=== PATIENT | female | born 1955 | race Caucasian/White ===

== ENCOUNTER → 2020-03-03 15:00 | Outpatient (CLI) | payer BC, SELFPAY ==
--- NOTE | ~2020-03-03 | MM_ITS ---
EXAMINATION: MM screening [facility] BI w nola HISTORY: Screening TECHNIQUE: Craniocaudal and mediolateral oblique 3-D tomosynthesis images were obtained and synthetic 2-D images were generated. CAD analysis was submitted and interpreted. COMPARISON: Comparison to multiple prior studies sequentially, with oldest reviewed study dated 08/11. BREAST PARENCHYMAL COMPOSITION: There are scattered areas of fibroglandular density. FINDINGS: There is no evidence of suspicious mass, calcification, or architectural distortion to sugg est malignancy in either breast. There has been no suspicious interval change. IMPRESSION: 1. No mammographic evidence of malignancy. 2. Recommend routine screening mammography in one year. BI-RADS Category 1: Negative Reviewed, dictated and finalized at location A.
== END ==
PROVIDERS: Visit Provider Obstetrics & Gynecology Gynecology
DX: Z12.31 Encounter for screening mammogram for malignant neoplasm of breast (principal)
CPT/HCPCS: 77063; 77067

== ENCOUNTER 2020-12-02 12:34 | Outpatient (CLI) | payer BC, SELFPAY ==
--- NOTE | 2020-12-02 12:54 | ECHO_ITS ---
Patient Info Name: Carissa Tobias Age: 65 years : 1955 Gender: Female Ht: 68 in Wt: 145 lbs BSA: 1.78 m2 HR: 75 bpm BP: 135 / 83 mmHg Technical Quality: Good Exam Date: 12/02/2020 1:04 PM Exam Location: [facility] Pulmonary Patient Status: Outpatient Admit Date: 12/02/2020 Staff Ordering Physician: Soto Dwyer DO Node Js Developer: Ann Nunez RDCS Attending Provider: Soto Dwyer DO Referring Physician: Reymundo ANDREWS; Exam Type: CA echo doppler color flow Study Info Indications R55 - Syncope and collapse Complete two-dimensional, color flow and Doppler transthoracic echocardiogram is performed. Summary 1. Complete two-dimensional, color flow and Doppler transthoracic echocardiogram is performed. 2. Left ventricular chamber dimension is normal. 3. Left ventricular systolic function is normal, estimated at 60-65%. 4. The left ventricular diastolic function is abnormal. 5. E/e' 10 is mildly elevated. 6. Left atrial chamber dimension is mildly enlarged. 7. Right atrial chamber dimension is mildly enlarged. 8. There is trace mitral valve regurgitation. 9. There is trace tricuspid valve regurgitation. 10. No pulmonary hypertension, estimated pulmonary arterial systolic pressure is 31 mmHg. Left Ventricle E/e' 10 is mildly elevated. Left ventricular chamber dimension is normal. Left ventricular systolic function is normal, estimated at 60-65%. The left ventricular diastolic function is abnormal. Right Ventricle Right ventricular chamber dimension is normal. Right ventricular systolic function is normal. Left Atria Left atrial chamber dimension is mildly enlarged. Right Atria Right atrial chamber dimension is mildly enlarged. Aortic Valve The aortic valve is trileaflet. There is no aortic valve stenosis. There is no aortic valve regurgitation. Pulmonic Valve There is no pulmonic regurgitation. Mitral Valve There is no mitral valve stenosis. There is trace mitral valve regurgitation. Tricuspid Valve There is trace tricuspid valve regurgitation. No pulmonary hypertension, estimated pulmonary arterial systolic pressure is 31 mmHg. Pericardium/Pleural There is no pericardial effusion. Inferior Vena Cava Normal inferior vena cava with >50% collapse upon inspiration consistent with normal right atrial pressure, 5 mmHg. Aorta The aortic root size at the sinus of Valsalva is normal. Left Ventricular Outflow Tract Name Value Normal LVOT 2D LVOT Diameter 1.9 cm LVOT Doppler LVOT Peak Gradient 5 mmHg LVOT Mean Gradient 3 mmHg LVOT VTI 22 cm LVOT VTI/AV VTI Ratio 0.9 LVOT Stroke Volume 60 ml LVOT CO 4.2 l/min LVOT CI 2.4 l/min/m2 Pulmonic Valve Name Value Normal
--- NOTE | 2020-12-08 12:31 | WPDHOLTEREM ---
Holter/Event Monitor Holter/Event Monitor Date of procedure: 12/02/20 Procedure Type: 48 hour holter monitor Indications: Syncope Conclusion: 1. 48 hour holter monitor on 12/02/20. 2. Underlying rhythm is sinus rhythm. HR range 55-129 bpm; average HR 79 bpm. 3. There are 82 premature supraventricular complexes and 1 supraventricular couplet. No supraventricular tachycardia. 4. There are 302 premature ventricular complexes. No ventricular tachycardia. 5. No sinoatrial or atrioventricular blocks. No significant pauses greater than 2 seconds. 6. No symptoms available for correlation.
== END 2020-12-02 12:35 | disposition home or self-care (01) ==
PROVIDERS: PCP Internal Medicine; Visit Provider Internal Medicine
DX: R55 Syncope and collapse (principal); R93.1 Abnormal findings on diagnostic imaging of heart and coronary circulation; I51.7 Cardiomegaly
CPT/HCPCS: 93225; 93226; 93306

== ENCOUNTER 2020-12-08 07:45 | Outpatient (CLI) | payer BC, SELFPAY ==
--- NOTE | ~2020-12-08 | US_ITS ---
EXAMINATION: US carotid duplex BI DATE: 12/08/2020 08:13 INDICATION: Syncope. TECHNIQUE: Grayscale, color Doppler, and pulsed Doppler images of the cervical carotid arteries were obtained. The degree of vessel stenosis is placed in one of the following categories: normal, <50%, 5 0-69%, >=70% but less than near-occlusion, near-occlusion, or total occlusion. Note that percent sten osis relative to normal distal artery lumen diameter is indirectly measured from velocity measurement s as described by Shin, et al. Radiology 2003; 229:340-346. COMPARISON: None. FINDINGS: RIGHT: The right common carotid artery (CCA) peak systolic velocity (PSV) is 90 cm/s. The right internal car otid artery (ICA) PSV is 82 cm/s. The right ICA end-diastolic velocity (EDV) is 23 cm/s. The right IC A/CCA PSV ratio is 0.9. Grayscale and color Doppler images yield an estimate of <50% diameter reducti on from plaque in the ICA. There is antegrade flow in the right vertebral artery. LEFT: The left CCA PSV is 83 cm/s. The left ICA PSV is 91 cm/s. The left ICA EDV is 25 cm/s. The left ICA/C CA PSV ratio is 1.1. Grayscale and color Doppler images yield an estimate of <50% diameter reduction from plaque in the ICA. There is antegrade flow in the left vertebral artery. IMPRESSION: 1. <50% stenosis in the right internal carotid artery. 2. <50% stenosis in the left internal carotid artery. Reviewed, dictated and finalized at location B.
== END 2020-12-08 07:46 | disposition home or self-care (01) ==
PROVIDERS: PCP Internal Medicine; Visit Provider Internal Medicine
DX: I65.23 Occlusion and stenosis of bilateral carotid arteries (principal); R55 Syncope and collapse
CPT/HCPCS: 93880

== ENCOUNTER → 2021-03-07 13:27 | Outpatient (CLI) | payer BC, SELFPAY ==
--- NOTE | ~2021-03-07 | DEXA_ITS ---
Bone Density Report Name: Carissa Tobias Age: 65 Sex: Female Ethnicity: White Date of : 1955 Indication: osteopenia; monitoring treatment; prior fracture; postmenopausal Referring Provider: JG, SEAMUS Study: Bone densitometry was performed. Exam Date: March 07, 2021 Accession number: [id number] Bone Density: Region BMD T-score Z-score Classification AP Spine (L1-L4) 0.817 -2.1 -0.3 Osteopenia Femoral Neck (Left) 0.591 -2.3 -0.8 Osteopenia Total Hip (Left) 0.748 -1.6 -0.4 Osteopenia Femoral Neck (Right) 0.577 -2.5 -1.0 Osteoporosis Total Hip (Right) 0.740 -1.7 -0.4 Osteopenia Total Hip Mean 0.744 -1.7 -0.4 Osteopenia World Health Organization criteria for BMD impression classify patients as: Normal (T-score at or above -1.0), Osteopenia (T-score between -1.0 and -2.5), or Osteoporosis (T-score at or below -2.5). 10-year Fracture Risk: FRAX not reported because: Some T-score for Spine Total or Hip Total or Femoral Neck at or below -2.5 Treated for osteoporosis Previous Exams: Region Exam Age BMD T-score BMD Change BMD Change Date g/cm2 vs Baseline vs Previous AP Spine(L1-L4) 03/07/2021 65 0.817 -2.1 -0.048* -0.011 10/22/2018 63 0.828 -2.0 -0.037* -0.003 09/27/2016 61 0.831 -2.0 -0.034* -0.034* 08/06/2014 59 0.864 -1.7 -0.001 0.027* 07/17/2012 57 0.837 -1.9 -0.028* -0.028* 07/15/2010 55 0.865 -1.7 Total Hip(Left) 03/07/2021 65 0.748 -1.6 -0.046* -0.009 10/22/2018 63 0.757 -1.5 -0.037* -0.005 09/27/2016 61 0.761 -1.5 -0.032* 0.015 08/06/2014 59 0.746 -1.6 -0.047* -0.023 07/17/2012 57 0.769 -1.4 -0.024 -0.024 07/15/2010 55 0.793 -1.2 Total Hip(Right) 03/07/2021 65 0.740 -1.7 -0.037* -0.004 10/22/2018 63 0.744 -1.6 -0.033* 0.001 09/27/2016 61 0.743 -1.6 -0.034* 0.003 08/06/2014 59 0.740 -1.7 -0.037* -0.020 07/17/2012 57 0.760 -1.5 -0.017 -0.017 07/15/2010 55 0.777 -1.4 *Denotes significance at 95% confidence level, LSC for AP Spine = 0.022 g/cm2, LSC for Total Hip = 0.027 g/cm2 Clinical Information Provided by Patient: Has had a low trauma fracture Is being treated for osteoporosis Has used the following medications: Fosamax (i.e. alendronate), Vitamin
--- NOTE | ~2021-03-07 | MM_ITS ---
EXAMINATION: MM screening [facility] BI w nola HISTORY: Screening TECHNIQUE: Craniocaudal and mediolateral oblique 3-D tomosynthesis images were obtained and synthetic 2-D images were generated. CAD analysis was submitted and interpreted. COMPARISON: Comparison to multiple prior studies sequentially, with oldest reviewed study dated 07/2016. BREAST PARENCHYMAL COMPOSITION: There are scattered areas of fibroglandular density. FINDINGS: There is no evidence of suspicious mass, calcification, or architectural distortion to sugg est malignancy in either breast. There has been no suspicious interval change. IMPRESSION: 1. No mammographic evidence of malignancy. 2. Recommend routine screening mammography in one year. BI-RADS Category 1: Negative Reviewed, dictated and finalized at location A.
== END ==
PROVIDERS: PCP Internal Medicine; Visit Provider Nurse Practitioner
DX: Z12.31 Encounter for screening mammogram for malignant neoplasm of breast (principal); M85.89 Other specified disorders of bone density and structure, multiple sites; M81.0 Age-related osteoporosis without current pathological fracture
CPT/HCPCS: 77063; 77067; 77080

== ENCOUNTER → 2022-05-15 12:09 | Outpatient (CLI) | payer BC, SELFPAY ==
--- NOTE | ~2022-05-15 | MM_ITS ---
EXAMINATION: MM screening [facility]ella BI w nola HISTORY: Screening TECHNIQUE: Craniocaudal and mediolateral oblique 3-D tomosynthesis images were obtained and synthetic 2-D images were generated. CAD analysis was submitted and interpreted. COMPARISON: Comparison to multiple prior studies sequentially, with oldest reviewed study dated 07/2016. BREAST PARENCHYMAL COMPOSITION: There are scattered areas of fibroglandular density. FINDINGS: There is no evidence of suspicious mass, calcification, or architectural distortion to sugg est malignancy in either breast. There has been no suspicious interval change. IMPRESSION: 1. No mammographic evidence of malignancy. 2. Recommend routine screening mammography in one year. BI-RADS Category 1: Negative Reviewed, dictated and finalized at location A.
== END ==
PROVIDERS: PCP Internal Medicine; Visit Provider Nurse Practitioner
DX: Z12.31 Encounter for screening mammogram for malignant neoplasm of breast (principal)
CPT/HCPCS: 77063; 77067

== ENCOUNTER → 2023-05-21 10:55 | Outpatient (CLI) | payer MEDICARE, SELFPAY ==
--- NOTE | ~2023-05-21 | DEXA_ITS ---
Bone Density Report Name: ALLISON RODGERS Age: 68 Sex: Female Ethnicity: White Date of : 1955 Indication: osteopenia; monitoring treatment; prior fracture; postmenopausal Referring Provider: JG, SEAMUS Study: Bone densitometry was performed. Exam Date: May 21, 2023 Accession number: [id number] Bone Density: Region BMD T-score Z-score Classification AP Spine (L1-L4) 0.910 -1.2 0.7 Osteopenia Femoral Neck (Left) 0.604 -2.2 -0.6 Osteopenia Total Hip (Left) 0.783 -1.3 0.0 Osteopenia Femoral Neck (Right) 0.570 -2.5 -0.9 Osteoporosis Total Hip (Right) 0.763 -1.5 -0.1 Osteopenia Total Hip Mean 0.773 -1.4 -0.1 Osteopenia World Health Organization criteria for BMD impression classify patients as: Normal (T-score at or above -1.0), Osteopenia (T-score between -1.0 and -2.5), or Osteoporosis (T-score at or below -2.5). 10-year Fracture Risk: FRAX not reported because: Some T-score for Spine Total or Hip Total or Femoral Neck at or below -2.5 Treated for osteoporosis Previous Exams: Region Exam Age BMD T-score BMD Change BMD Change Date g/cm2 vs Baseline vs Previous AP Spine(L1-L4) 05/21/2023 68 0.910 -1.2 0.045* 0.093* 03/07/2021 65 0.817 -2.1 -0.048* -0.011 10/22/2018 63 0.828 -2.0 -0.037* -0.003 09/27/2016 61 0.831 -2.0 -0.034* -0.034* 08/06/2014 59 0.864 -1.7 -0.001 0.027* 07/17/2012 57 0.837 -1.9 -0.028* -0.028* 07/15/2010 55 0.865 -1.7 Total Hip(Left) 05/21/2023 68 0.783 -1.3 -0.010 0.035* 03/07/2021 65 0.748 -1.6 -0.046* -0.009 10/22/2018 63 0.757 -1.5 -0.037* -0.005 09/27/2016 61 0.761 -1.5 -0.032* 0.015 08/06/2014 59 0.746 -1.6 -0.047* -0.023 07/17/2012 57 0.769 -1.4 -0.024 -0.024 07/15/2010 55 0.793 -1.2 Total Hip(Right) 05/21/2023 68 0.763 -1.5 -0.014 0.023 03/07/2021 65 0.740 -1.7 -0.037* -0.004 10/22/2018 63 0.744 -1.6 -0.033* 0.001 09/27/2016 61 0.743 -1.6 -0.034* 0.003 08/06/2014 59 0.740 -1.7 -0.037* -0.020 07/17/2012 57 0.760 -1.5 -0.017 -0.017 07/15/2010 55 0.777 -1.4 *Denotes significance at 95% confidence level, LSC for AP Spine = 0.022 g/cm2, LSC for Total Hip = 0.027 g/cm2 Clinical Information Provided by Patient: ------
--- NOTE | ~2023-05-21 | MM_ITS ---
EXAMINATION: MM screening [facility] BI w nola HISTORY: Screening mammogram TECHNIQUE: Craniocaudal and mediolateral oblique 3-D tomosynthesis images were obtained and synthetic 2-D images were generated. CAD analysis was submitted and interpreted. COMPARISON: 05/15/2022, 03/17/2021, 03/03/2020 bilateral screening mammogram examinations BREAST PARENCHYMAL COMPOSITION: There are scattered areas of fibroglandular density. FINDINGS: Stable mild fibroglandular asymmetry. There is no evidence of suspicious mass, calcificatio n, or architectural distortion to suggest malignancy in either breast. There has been no suspicious i nterval change. IMPRESSION: 1. Stable benign fibroglandular asymmetry. No mammographic evidence of malignancy. 2. Recommend routine screening mammography in one year. BI-RADS Category 2: Benign finding(s). Reviewed, dictated and finalized at location A. IMPRESSION: 1. Stable benign fibroglandular asymmetry. No mammographic evidence of malignan cy. 2. Recommend routine screening mammography in one year. BI-RADS Category 2: Benign finding(s).
== END ==
PROVIDERS: PCP Nurse Practitioner; Visit Provider Nurse Practitioner
DX: Z12.31 Encounter for screening mammogram for malignant neoplasm of breast (principal); M81.0 Age-related osteoporosis without current pathological fracture; M85.88 Other specified disorders of bone density and structure, other site; M85.852 Other specified disorders of bone density and structure, left thigh; M85.851 Other specified disorders of bone density and structure, right thigh
CPT/HCPCS: 77063; 77067; 77080

== ENCOUNTER 2023-09-03 09:39 | Outpatient (CLI) | payer OTHER, SELFPAY ==
--- NOTE | 2023-09-03 09:52 | ECG_ITS ---
Measurements Intervals Usk Rate: 72 P: 29 IL: 122 QRS: 6 QRSD: 101 T: 42 QT: 359 QTc: 395 Interpretive Statements SINUS RHYTHM POOR R-WAVE PROGRESSION BORDERLINE ECG NO PREVIOUS ECG AVAILABLE FOR COMPARISON Electronically Signed On 09-03-2023 16:50:21 [employer] by Ger Chamberlain M.D.
[2023-09-03 10:10] LABS: Hematocrit 39.3 % (37.0-47.0); Hemoglobin 12.5 g/dL (12.0-15.0)
[2023-09-03 10:21] LABS: Anion Gap 5 mmol/L (8-16); Blood Urea Nitrogen 16 mg/dL (7-17); Calcium 9.3 mg/dL (8.4-10.2); Carbon Dioxide 31 mmol/L (22-30); Chloride 104 mmol/L (98-107); Estimated Glomerular Filt Rate > 60; Glucose 77 mg/dL (65-110); Sodium 140 mmol/L (137-145)
== END 2023-09-03 09:40 | disposition home or self-care (01) ==
LOC: ANHSURGERY 09:42
PROVIDERS: Anesthesiology; PCP Internal Medicine; Visit Provider Surgery Plastic and Reconstructive Surgery
DX: L57.4 Cutis laxa senilis (principal); Z79.899 Other long term (current) drug therapy; Z01.818 Encounter for other preprocedural examination; R94.31 Abnormal electrocardiogram [ECG] [EKG]
CPT/HCPCS: 36415; 80048; 85014; 85018; 93005

== ENCOUNTER 2023-09-10 00:56 | Day surgery (SDC) | payer OTHER, SELFPAY ==
[2023-08-28 11:11] VITALS: BMI 22.8
--- NOTE | 2023-08-28 11:35 | PC.NURSE ---
PRE-OP INSTRUCTIONS, PLEASE READ CAREFULLY Report to the Outpatient Waiting Room, entrance under the green pavilion located off [facility], at time _0600_ on date _09/10/23_. Planned Procedure Time: _0730_. Time changes happen often and if your time is changed the preop area will call you the afternoon before. - You and your visitor will be asked to self-screen and do not enter if you have any COVID symptoms. - A mask is optional within the hospital at this time. Patients may have clear liquids (water, carbonated beverages, clear teas, apple juice) until 3 hours prior to surgery (0430 AM) with a maximum of 20 ounces. - No food from midnight until time of surgery Take the following medications with a SIP of water the morning of surgery: _NONE_ DO NOT STOP ANY OF YOUR OTHER PRESCRIPTION MEDICATIONS PRIOR TO SURGERY ?EXCEPT THE FOLLOWING Medications to discontinue per ANESTHESIA - _VITAMINS/SUPPLEMENTS 3 DAYS PRIOR TO SURGERY, Date to take last dose 09/06/23_ Please no make-up, nail malaysian, hairspray, perfume, deodorant, or body powder the day of surgery. No jewelry (including any body piercings) or valuables the day of surgery, leave them at home. Please take a shower or bath the night before, or the morning of, surgery with an antibacterial soap. Wear comfortable, loose fitting clothing. - Jewelry must be removed prior to entering the operating room. Rings and piercings that are not removed may be cut off. - The hospital will not accept responsibility for valuables. - Please leave all valuables, including medications, at home the day of surgery. If you are going home after surgery, a licensed delivery driver/supervisor must drive you home. - NO public transportation without another adult if you receive anesthesia. - We recommend that an adult stay with you for 24 hours following discharge. - We also recommend that you do not drive, make important decision, drink alcoholic beverages, or take any drugs that were not prescribed by your health care provider for at least 24 hours after your discharge time. Follow any additional instructions given to you from your surgeon. If you or anyone in your household have experienced Covid symptoms in the past week, please notify your surgeon or the nurse liaison at the phone number below for possible testing. Telephone instructions given to _PATIENT_and asked if any additional questions and then verbalized understanding. Patient advised to call surgeon office or pre surgery nurse liaison [phone] if any additional questions.
[2023-09-10] VITALS (13 sets, daily range): BP systolic 118–149; BP diastolic 56–90; PULSE 68–103; RESP 14–20; TEMP 36.1–37.5; O2SAT 94–100
[2023-09-10] MEDS: LACTATED RINGERS 1,000 ML 30 ML IV CONT ×3 (06:45→12:54)
--- NOTE | 2023-09-10 07:00 | WPDANESEPPF ---
Anes - Initial Pre Proc Eval Procedure: Operation Date: 09/10/23 07:30 Proposed Procedures p Face Lift, Neck Lift - Aman Ruiz MD s Facial Fat Grafting - Aman Ruiz MD Date/Time: 09/10/23 07:00 Surgeon: Aman Ruiz MD Pre Op Diagnosis: skin laxity Patient Data Age: 68 Gender: F Height: 1.73 m Weight: 68.18 kg Allergies Allergy/AdvReac Type Severity Reaction Status Date / Time No Known Allergies Allergy Verified 09/10/23 06:59 Home Medications Medication Instructions Recorded Confirmed Type denosumab 60 mg/mL subcutaneous 60 mg subcut [id number] 01/22/23 09/10/23 History syringe (Prolia) donepezil 5 mg tablet 5 mg PO QHS #30 tabs 07/06/23 09/10/23 Rx biotin 10,000 mcg capsule 10,000 mcg PO DAILY 08/28/23 09/10/23 History cholecalciferol (vitamin D3) 250 250 mcg PO DAILY 08/28/23 09/10/23 History mcg (10,000 unit) tablet cyanocobalamin (vitamin B-12) 1 cap DAILY 08/28/23 09/10/23 History latanoprost 0.005 % eye drops 1 drp HS 08/28/23 09/10/23 History magnesium 200 mg tablet 200 mg PO DAILY 08/28/23 09/10/23 History spironolactone 100 mg tablet 100 mg BID 08/28/23 09/10/23 History Patient hx anesthesia problems: post op nausea/vomiting Family hx anesthesia problems: none Results Review: All pre-operative results and documents have been reviewed as part of the pre-operative evaluation. [facility] Past Medical History Medical History (Updated 09/10/23 @ 07:10 by Obie Paula DO) Osteoporosis Surgical History Surgical History (Updated 09/10/23 @ 07:11 by Obie Paula DO) History of angioplasty renal for HTN, 2000, no issues since Family History Family History Mother Hypertension Sibling Hypertension Family history of gastrointestinal disorder Father Patient's father is Social History Social History (Updated 01/22/23 @ 08:57 by Lorraine Rodriguez [facility]) Smoking packs per day: 0.5 Smoking cigarettes per day: 10.0 Years smoked: 25 Smoking pack-years: 12.50 Smoking status: Former smoker Tobacco type: cigarettes Second hand tobacco smoke exposure: No Smoking end date: 07/30/09 Alcohol intake: current Alcohol use details: 2/MONTH Substance use: never Substance use type: does not use Lack of Transportation: No Lack of Food: Never True Current Housing: I Have Housing Concerned About Future Housing: No Difficulty Paying Gas/Electric Bills: No Difficulty Paying for Meds: No Currently Unemployed: No Education: Associate Degree Difficulty w/ Childcare or Family Care: No Living arrangements: with friend(s) Additional living arrangements comments: LIVES WITH [facility] care concerns: No Anes - Eval Final PreProcedure Day of Procedure 09/10/23 07:00 Patient weight: normal Heart: regular rate and rhythm Lungs: clear to auscultation Airway: Mallampati scale class II Neurological: alert and oriented Last oral intake: >/= 8 hours ASA classification: II Emergent: no Anesthetic plan: proceed Anesthesia type and monitoring: general ETT and standard monitoring Results Review: All pre-operative results and documents have been reviewed as part of the pre-operative evaluation. Informed Consent: The patient's anesthetic plan and its attendant risks and benefits were discussed with the patient/family/POA. Questions were solicited and answers provided to the satisfaction of the patient/family/POA.
--- NOTE | 2023-09-10 07:04 | WPDHPUPDATE1 ---
History and Physical Update Update Date/Time: 09/10/23 07:04 History and Physical has been reviewed, including an updated exam of the patient. There are NO changes in the patient's condition. Risks, benefits, and alternatives have been discussed and questions answered. Patient agrees to proceed with procedure.
--- NOTE | 2023-09-10 07:04 | W.PM.PROC2 ---
Procedure Note - Detailed Date of Procedure 09/10/23 Pre-op Diagnosis skin laxity Post-op Diagnosis Same Procedure Performed Face / neck lift with facial fat grafting Surgeon Aman Ruiz MD Anesthesia General Findings Fat grafting Right lower lid: 2cc Left lower lid: 2cc Right malar: 3cc Left malar: 3cc Right congregational: 2cc Left congregational: 2cc Right Zygoma: 2cc Left Zygoma: 2cc Right Pre-jowl: 1cc Left Pre-jowl: 1cc Right gonial angle: 2cc Left gonial angle: 2cc Description of Procedure Preoperatively the risks, benefits, alternatives were discussed in extensive detail. I want her to be very realistic about the risks involved as well as expectations. Reviewed what we can and cannot accomplish. Realistic expectations of outcome. All questions were answered to satisfaction. Consent obtained. Taken to the operating room placed supine on the operating room table. Anesthesia provided by anesthesiology. Surgical time-out was taken. Tube sutured into place to the first Incisor. Prepped and draped in standard sterile fashion. Local anesthesia was provided with a tumescent solution using lidocaine, epinephrine, and TXA. Abdominal examination was completed and an 11 blade used to make a stab incision at the umbilicus. Suction lipectomy was completed with a 3mm multi-hole canula to a GoSquarede gravity separation device. Once adequate time for gravity separation fat was transferred to a syringe and using a Radio NEXT microfat kit reduced to 1.2. Stab incisions made with an 18 gauge as need and fat infiltration completed using a 0.8mm fat grafting cannula on a 1cc syringe to volumes as above based on preoperative planning and intraoperative observation. Once adequate time for effect a fifteen blade used to make a submental incision. Dissection was continued down identified platysma muscle. Elevated skin flaps with good adiposity of the deep surface throughout the neck just what was necessary centrally. I then proceeded sub platysmal and elevated bilateral. Minimal submandibular gland hypertrophy, digastric, and subplatysmal fat so this was not removed. A small platysmal backcut was completed inferior to the Hyoid transversely. Platysma muscle was repair centrally with 2-0 Vicryl. I then proceeded made the remainder of the incisions. I elevated skin flaps with good adequate adiposity of the deep surface to have good contour. This was continued for all the areas necessary. I then incised the SMAS from inferior to the gonial angle towards the lateral orbital rim slowly elevating with care taken to monitor for any twitches / for facial nerves. Elevated what was necessary to provide complete release of SMAS. The SMAS was ten elevated and sutured into place with 2-0 Vicryl in a horizontal mattress fashion to the desired contour. Created a short backup at the mandibular boarder. Created a mastoid crevasse along the anterior aspect of the mastoid and the platysma was secured with 2-0 Ethibond. There was no evidence of nerve injury throughout the procedure. Copious irrigated with saline solution and verified strict hemostasis. I placed a 10 [place] drain sutured in place postauricular with this 3-0 Vicryl. The skin flaps were just placed into position without any tension. Trimmed as necessary. Preauricular was closed with 5-0 nylon. Postauricular with 5-0 chromic. I did mic in the hairline. Submental was closed using 3-0 Monocryl followed by running subcuticular 4-0 Monocryl and tissue glue. Hemostatic net placed with 3-0 Nylon. Dressings were placed. Patient was awoken without difficulty. All instrument sponge counts were correct at the end of the case. Estimated Blood Loss 50 Drains No Packing No Pathology None sent Complications No immediate complications Condition Stable Disposition PACU
[2023-09-10] MEDS: ceFAZolin 2 GM/D5W 50 ML 2 GM/50 ML BAG IVPB (07:37)
[2023-09-10] MEDS: TRANEXAMIC ACID 1,000MG/ISO100 1,000 MG/100 ML BAG 200 MG IVPB (07:54)
[2023-09-10] MEDS: ceFAZolin SODIUM 1 GM VIAL 2 GM IV PUSH (11:37)
[2023-09-10] MEDS: fentaNYL CITRATE INJ (*CRX) 100 MCG/2 ML VIAL 25 MCG IV PUSH ×2 (13:47→13:50)
== END 2023-09-10 16:50 | disposition home or self-care (01) ==
PROVIDERS: PCP Internal Medicine; Visit Provider Surgery Plastic and Reconstructive Surgery
PROC: (CPT 15824; principal; 2023-09-10 07:30)
PROC: (CPT 15769; 2023-09-10 07:30)
DX: Z41.1 Encounter for cosmetic surgery (principal); L57.4 Cutis laxa senilis; M81.0 Age-related osteoporosis without current pathological fracture; Z98.890 Other specified postprocedural states; Z87.891 Personal history of nicotine dependence
CPT/HCPCS: 15773; 15825; 15829; A9270; J0171; J0330; J0690; J1100; J1170; J1200; J2250; J2405; J2704; J2765; J3010; J7030; J7120; Q9968

== ENCOUNTER 2024-05-22 14:50 | Outpatient (CLI) | payer MEDICARE, SELFPAY ==
--- NOTE | ~2024-05-22 | MM_ITS ---
EXAMINATION: MM screening [facility] BI w nola HISTORY: Screening TECHNIQUE: Craniocaudal and mediolateral oblique 3-D tomosynthesis images were obtained and synthetic 2-D images were generated. CAD analysis was submitted and interpreted. COMPARISON: Comparison to multiple prior studies sequentially, with oldest reviewed study dated 01/2018. BREAST PARENCHYMAL COMPOSITION: Not dense: There are scattered areas of fibroglandular density. FINDINGS: There is no evidence of suspicious mass, calcification, or architectural distortion to sugg est malignancy in either breast. There has been no suspicious interval change. IMPRESSION: 1. No mammographic evidence of malignancy. 2. Recommend routine screening mammography in one year. BI-RADS Category 1: Negative Reviewed, dictated and finalized at location B.
== END 2024-05-22 14:51 | disposition home or self-care (01) ==
PROVIDERS: PCP Internal Medicine; Visit Provider Nurse Practitioner
DX: Z12.31 Encounter for screening mammogram for malignant neoplasm of breast (principal)
CPT/HCPCS: 77063; 77067

== ENCOUNTER 2025-01-09 18:42 | Emergency (ER) | payer MEDICARE, SELFPAY ==
--- OUTSIDE RECORDS SUMMARY | 2025-01-09 18:45 | XMS_ITS | Clinical Summary ---
Author Organization [facility] Address [address] [place] [address] Care Team Providers Care Alfalfa Dehydrator Operator Name Role Phone Soto Dwyer Primary Care Provider [phone] Source Comments [facility],non-owned Affiliates and Associated Physician Practices is amultiple site organization consisting of ambulatory clinics and hospital sitesin [place], [place], [place] and [place]. This disclosure is being madepursuant to the Care Everywhere program and may not contain all information available regarding this patient. Last updated 18.[facility] Allergies No known active allergies Medications * Be aware that medications may not be up to date on this document. Alwaysverify current medications with the patient. 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 Social History Tobacco Use Types Packs/Day Years Used Date Smoking Tobacco: Former Smokeless Tobacco: Never Alcohol Use Standard Drinks/Week Comments Yes 0 (1 standard drink = 0.6 oz pur e alcohol) Comments Unknown Sex and Gender Information Value Date Recorded Sex Assigned at Not on file Legal 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 Gender Identity Not on file Sexual Orientation Not on file Plan of Treatment Health Maintenance Due Date Last Done Comments BONE DENSITY TESTING 1955 COLOGUARD (AGES 45-75) - COL ON CA SCREENING 1956 COLON MONITORING 1956 COLONOSCOPY - COLON CA SCREENING 1956 CT COLONOGRAPHY - COLON CA SCREENING 1956 Colorectal Cancer Screening 1956 FIT - COLON CA SCREENING 1956 FLEX SIG - COLON CA SCREENING 1956 LIPID TESTING 1956 MAMMOGRAM 1956 HEPATITIS C SCREENING 04/06/1974 DTAP/TDAP/TD VACCINES (1 - Tdap) 1975 PNEUMOCOCCAL VACCINE 50+ (1 of 1 - PCV) 2006 ZOSTER VACCINE (1 of 2) 2006 COVID-19 VACCINE (1 - 2023-2 5 season) 2024 DEPRESSION SCREENING 07/30/2024 INFLUENZA VACCINE (Season Ended) 2025 Respiratory Syncytial Virus (RSV) Vaccine Pt: or over 60 yrs (1 - 1-dose 75+ series) 2031 HEPATITIS B VACCINE Aged Out No longe r eligible based on patient's age to complete this topic HIB VACCINE Aged Out No longer eligi ble based on patient's age to complete this topic HPV VACCINE Aged Out No longer eligi ble based on patient's age to complete this topic MENINGOCOCCAL (Group B) VACC INE SHARED DECISION-MAKING Aged Out No longer eligibl e based on patient's age to complete this topic MENINGOCOCCAL GROUPS A/C/Y/W VACCINE Aged Out No longer eligible b ased on patient's age to complete this topic Insurance COUNTS INCLUDE 234 BEDS AT THE [facility] Care Teams Alfalfa Dehydrator Operator Relationship Specialty Start Date End Date Soto Dwyer DO [address] [facility] [address] [facility] [address] [place] [address] PCP - General 03/22/10
--- OUTSIDE RECORDS SUMMARY | 2025-01-09 18:45 | XMS_ITS | Continuity of Care Document ---
Author Name [facility] Organization [facility] Care Team Providers Care Loan Officer Name Role Phone [facility] Unavailable Unavailable Encounters Combined list of: 1) Encounters from Department of Veterans Affairs facilities going backup to the last 18 months, not all VA inpatient encounters are included; 2) Encounters from the Department of [employer] facilities going backup to 280 months. Location Location Details Encounter Type Encounter Number Reason For Visit Attending Provider ADM Date DC Date Status Disposition Source [facility] Outpatient Encounter [id number] 07/16 [facility] Social History Combined list of available smoking, tobacco, and other social history from Department of Defense and Veterans Affairs facilities. Social History Type Response Date Comment Sourc e This section is an empty social history section. DoD
--- OUTSIDE RECORDS SUMMARY | 2025-01-09 18:45 | XMS_ITS | Continuity of Care Document ---
[facility] Organization [facility] Address [address] [place] [address] Phone Care Team Providers Care Underliner Name Role Phone Keo SADLER, Marilee Unavailable Unavailabl e Advance Directives Directive Yes / No Effective Date File Name No Information Encounters Encounter Description Practice Location Reason(s) For Visit Diagnoses Date Provider Providers Copied on Encounter [facility], [address], [place], [place], [id number], tel:[phone] [facility] No Information Keo Hunt. [address] [place] [address], [id number], [place]. tel:[phone] Family History Family Member Type Diagnosis Age At Onset No Information Payers Payer name Insurance type Covered constitution party ID Authoriza tion(s) No Information Social History Type Description Quantity Date Captured Comments Sex Female Smoking Status No Information Chief Complaint And Reason For Visit No Information Reason For Referral Reason For Referral No Information History Of Present Illness Encounter Date Complaint History Of Prese nt Illness No Information Functional Status Date Functional Assessmen t No Information Instructions Date Instruction Additional Infor mation No Information Assessments Type Assessment Date No Information Patient Care Teams Name Effective Dates (start - stop) Status Members No Information
--- OUTSIDE RECORDS SUMMARY | 2025-01-09 18:45 | XMS_ITS | Data Portability ---
Author Organization [facility], Main Office Address [address] [place] [address] Assessment Encounter Date Assessment Date Assessment LastModified by Organization Details LastModified Time 09/07/2023 09/07/2023 68 yo patient presents today with elbow pain that has been going on for about 2 weeks. She denies any injury or issues with the elbow in the past. She has pain on the lateral and medial sides of the elbow that is worse with lifting objects. 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 For treatment she has tried a compressive wrap. Imaging: xrays reviewed show no acute bony abnormality, preserved joint spaces. Physical exam: pain with palpitation over the lateral and medial epicondyle. Pain with resisted wrist extension and flexion. Pain with ROM but no restrictions in ROM. Sensation intact throughout. She is likely experiencing both medial and lateral epicondylitis. We will start with a course of anti-inflammato daly. We will also provide her with an exercise/stretc guru handout. She discussed she may also benefit from trying Voltaren gel or a counterforce strap. We can see her back in 4-6 weeks to check her progress. [email or web address] Not available 09/07/2023 09:58:38 Plan of Treatment Reminders Order Date Submit Date Provider Last Modified By Organization Details Last Modified Time Details Appointments None record ed. Lab None record ed. Referral None record ed. Procedures None record ed. Surgeries None record ed. Imaging XR, elbow, 3 or more view 024 09/07/19 24 [email or web address] [facility] [place], [address], [place], [address], 4 11:45:13 Medication Orders None record ed. Patient TargetsNo targets recorded. Patient InstructionsNo instructions recorded. Reason for Referral None Reported. Results Created Date Observation Date Name Description Value Unit Range Abnormal Flag Note LastModifiedBy Organization Detail LastModifiedTime 03/07/20 21 XR, knee No observ ation record ed. [id number] [facility] [place] [address], [place], [address], 09/27/2022 18:53:23 08/10/19 23 XR, hand No observ ation record ed. [id number] [facility] [place] [address], [place], [address], 09/27/2022 18:53:23 09/07/19 24 XR, elbow , 3 or more view No observ ation record ed. [email or web address] [facility] [place] [address], [place], [address], 09/07/2023 09:59:24 Result Notes None recorded. Problems Name Problem SNOMED Code Status Onset Date Resolution Date Notes Provider Name and Address Organization Details Recorded Time History of angioplast y 316641914 Active 2016 Not Available [facility] 3 18:52:26 Pain of right elbow joint 7565742403807 9109 Active 2023 JEFF Segura, [place] - [facility] [place] [facility] 4 09:00:14 Problem Notes None recorded. Procedures Surgical History Date Name Laterality Status Provider Name and Address Organization Details Recorded Time 07/30/19 angioplasty of renal artery completed Not Available [facility] 09/27/2022 18:51:57 repair of meniscus completed Not Available [facility] 09/27/2022 18:51:57 Imaging Results None recorded. Procedure Notes None recorded. Medical Equipment None Reported. Medications Name Sig Start Date Stop Date Status Note LastModified by Organization Details LastModified Time latanoprost 0.005 % eye drops INSTILL 1 DROP INTO EACH EYE AT BEDTIME active Not Available Not Available No t Available donepezil 5 mg tablet TAKE 1 TABLET BY MOUTH ONCE DAILY AT BEDTIME active Not Available Not Available No t Available ibuprofen 800 mg tablet TAKE 1 TABLET BY MOUTH TWICE DAILY 03/07 completed Not Available Not Available Not Available meloxicam 15 mg tablet TAKE 1 TABLET BY MOUTH ONCE DAILY active Not Available Not Available No t Available alendronate 70 mg tablet TAKE 1 TABLET BY MOUTH EVERY 7 DAYS 08/10 completed Not Available Not Available Not Available spironolact one 100 mg tablet TAKE 1 TABLET BY MOUTH TWICE DAILY active Not Available Not Available No t Available amoxicillin 875 mg tablet TAKE 1 TABLET BY MOUTH NOW AND THEN 1 TWICE DAILY UNTIL GONE active Not Available Not Available No t Available Kenalog 10 mg/mL suspension for injection In office injection administe red by the provider active [facility]: 0003- [id number]- 20 Not Available Not Available Not Available hydrocodone 7.5 mg-acetamin ophen 325 mg tablet TK 1 T PO Q 4 TO 6 H PRN P 03/07 completed Not Available Not Available Not Available raloxifene 60 mg tablet TK 1 T PO QD 03/07 completed Not Available Not Available Not Available ergocalcife rol (vitamin D2) 1,250 mcg (50,000 unit) capsule TAKE 1 CAPSULE BY MOUTH TWICE WEEKLY active Not Available Not Available No t Available scopolamine 1 mg over 3 days transdermal patch APPLY ONE PATCH TO THE SKIN DIRECTED BEHIND EAR EVENING PRIOR TO SURGERY active Not Available Not Available No t Available spironolact one 50 mg tablet TK 2 TS PO BID 03/07 completed Not Available Not Available Not Available ropivacaine (PF) 5 mg/mL (0.5 %) injection solution Take 10 mg by injection route. active Not Available Not Available No t Available Paxlovid 300 mg (150 mg x 2)-100 mg tablets in a dose pack FOLLOW PACKAGE DIRECTION S active Not Available Not Available No t Available Vitals Date Recorded Body mass index (BMI) Body height Body weight Provider Name and Address Organization Details Last Updated DateTime 08/10/2022 22.8 kg/m2 172.72 cm 34697.86 g Not Available [facility] 09/27/2022 18:52:11 Date Recorded Body height Body mass index (BMI) Body weight Provider Name and Address Organization Details Last Updated DateTime 09/07/2023 172.72 cm 24 kg/m2 97393.59 g JEFF Segura - [facility] 09/07/2023 08:59:17 Date Recorded Body mass index (BMI) Body height Body weight Provider Name and Address Organization Details Last Updated DateTime 03/07/2021 24.7 kg/m2 170.18 cm 38459.59 g Not Available [facility] 09/27/2022 18:52:11 Social History Question Answer Notes LastModified by Organizat [employer] Details LastModified Time Tobacco Smoking Status Never Smoker Not Available [facility] 09/27/2022 18:51:53 What Was The Date Of Your Most Recent Tobacco Screening? 09/07/2023 [email or web address] Information not available 09/07/2023 Sex: Unknown Functional Status Question Answer Note LastModified by Organizat ion Details LastModified Time What is your level of alcohol consumption? Occasional [id number] Information not available 09/27/2022 Mental Status None recorded. Family History Relationship Description Onset Age of this Age Resolved Age Notes LastModified by Organization Details LastModified Time Brother Family history of stroke [id number] Not available 09/27/2022 18:51:58 Mother Hypertensive disorder [id number] Not available 09/27/2022 18:51:58 Maternal Grandmother Diabetes mellitus [id number] Not available 09/27/2022 18:51:58 Medical History Condition Response OSTEOPOROSIS Y Gynecological HistoryNo gynecological history recorded. Obstetrics History GPAL:G 0 P 0 0 0 0 Past Encounters Encounter ID Performer Location Encounter Start Date Encounter Closed Date Diagnosis/Indication Diagnosis SNOMED-CT Code Diagnosis ICD10 Code Diagnosis Note [id number] Jovan Velasquez MD [facility] [place] [address] [place] [address] 03/07/2021 00:00:00 03/07/2021 17:45:42 [id number] Nazario Main MD [facility] [place] [address] [facility] [address] [place] [address] 08/10/2022 00:00:00 08/10/2022 10:00:21 [id number] Olayinka Sherwood MD [facility] [place] [address] [place] [address] 09/07/2023 08:54:22 09/07/2023 11:45:13 Pain of right elbow joint 3822440394 1882935 M25.521 Health Concerns Section Related Observation LastModified by Organization Detai ls LastModified Time None Recorded Concern Status LastModified by Organization Details LastModified Time None Recorded Advance Directives Directive None Recorded Payers Insurance Date Sequence Insurance Name Policy Number Policy Elias Covered Member ID Elias Member ID Guarantor Name 09/17/2023 1 [employer] [id number] Carissa Tobias [id number] Brittani Tobias 08/27/2023 1 [place] [id number] S Brittani Tobias [id number] Brittani Tobias OBGyn Episode No OBEpisode recorded.
--- OUTSIDE RECORDS SUMMARY | 2025-01-09 18:51 | XMS_ITS | Continuity of Care Document ---
Author Organization [facility] Address [address] [place] [address] Phone Care Team Providers Care Bass String Winder Name Role Phone Keo SADLER, Marilee Unavailable Unavailabl e Advance Directives Directive Yes / No Effective Date File Name No Information Encounters Encounter Description Practice Location Reason(s) For Visit Diagnoses Date Provider Providers Copied on Encounter [facility], [address], [place], [place], [address], tel:[phone] [facility] No Information Keo Hunt. [address] [place] [address], [id number], [place]. tel:[phone] Family History Family Member Type Diagnosis Age At Onset No Information Payers Payer name Insurance type Covered green party ID Authoriza tion(s) No Information Social [...]
--- OUTSIDE RECORDS SUMMARY | 2025-01-09 18:51 | XMS_ITS | Continuity of Care Document ---
Author Name [facility] Organization [facility] Care Team Providers Care Swim Coach Name Role Phone [facility] Unavailable Unavailable Encounters Combined list of: 1) Encounters from Department of Veterans Affairs facilities going backup to the last 18 months, not all VA inpatient encounters are included; 2) Encounters from the Department of [employer] facilities going backup to 280 months. Location Location Details Encounter Type Encounter Number Reason For Visit Attending Provider ADM Date DC Date Status Disposition Source [facility] Outpatient Encounter [id number] 07/16 [facility] Social History Combined list of available smoking, tobacco, and other social history from Department of Defense and Veterans Affairs facilities. Social History Type Response Date Comment Sourc e This section is an empty social history section. DoD
[2025-01-09 18:55] VITALS: BP 126/64; PULSE 78; RESP 16; TEMP 36.7; O2SAT 100
--- NOTE | 2025-01-09 18:55 | ED_ITS ---
HPI - Wound/Laceration General Chief Complaint: Wound/Laceration Stated Complaint: Right arm cut Time Seen by Provider: 01/09/25 18:55 History of Present Illness HPI narrative: 69 yo F presents with skin tear to R forearm. Was putting together furniture and cut herself with new piece of wood. Bleeding controlled on arrival. All systems reviewed and negative except as noted above. Related Data Home Medications ?Medication ?Instructions ?Recorded ?Confirmed ?Last Taken ?Type denosumab 60 mg/mL subcutaneous 60 mg subcut [id number] 01/22/23 04/21/24 Unknown History syringe (Prolia) biotin 10,000 mcg capsule 10,000 mcg PO DAILY 08/28/23 04/21/24 Unknown History cholecalciferol (vitamin D3) 250 250 mcg PO DAILY 08/28/23 04/21/24 Unknown History mcg (10,000 unit) tablet cyanocobalamin (vitamin B-12) 1 cap DAILY 08/28/23 04/21/24 Unknown History latanoprost 0.005 % eye drops 1 drp HS 08/28/23 04/21/24 Unknown History magnesium 200 mg tablet 200 mg PO DAILY 08/28/23 04/21/24 Unknown History spironolactone 100 mg tablet 100 mg BID 08/28/23 04/21/24 Unknown History turmeric 400 mg capsule 400 mg PO DAILY 11/23/23 04/21/24 Unknown History Allergies Allergy/AdvReac Type Severity Reaction Status Date / Time No Known Allergies Allergy Verified 01/09/25 18:45 Review of Systems Review of Systems: CONSTITUTIONAL: Denies fever, chills, or sweats. EYES: Denies visual changes, redness, or discharge. ENT: Denies rhinorrhea, congestion, sore throat, or otalgia. CARDIOVASCULAR: Denies chest pain, palpitations, or edema. RESPIRATORY: Denies cough or dyspnea. GASTROINTESTINAL: Denies abdominal pain, nausea, vomiting, or diarrhea. GENITOURINARY: Denies dysuria or hematuria. SKIN: Denies rash or itching. Reports skin tear to right forearm MUSCULOSKELETAL: Denies back pain, joint pain, or myalgia. NEUROLOGIC: Denies headache, numbness, or weakness. PSYCHIATRIC: Denies anxiety or depression. All other systems reviewed are negative, except as documented in HPI. [facility] Past Medical History Medical History (Updated 01/09/25 @ 19:09 by Miroslava Conway NP) Encounter for screening colonoscopy Vitamin D deficiency, unspecified Routine medical exam Rib pain on right side Pure hypercholesterolemia, unspecified Pure hypercholesterolemia Other chest pain Hx of renal artery stenosis Encounter for cosmetic surgery Osteoporosis Surgical History Surgical History History of angioplasty renal for HTN, 2000, no issues since Family History Family History Mother Hypertension Sibling Hypertension Family history of gastrointestinal disorder Father Patient's father is Social History Social History Smoking packs per day: 0.5 Smoking cigarettes per day: 10.0 Years smoked: 25 Smoking pack-years: 12.50 Smoking status: Former smoker Tobacco type: cigarettes Second hand tobacco smoke exposure: No Smoking end date: 07/30/09 Alcohol intake: current Alcohol use details: 2/MONTH Substance use: never Substance use type: does not use Do You Feel Safe in your Home?: Yes Lack of Transportation: No Lack of Food: Never True Current Housing: I Have Housing Concerned About Future Housing: No Difficulty Paying Gas/Electric Bills: No Difficulty Paying for Meds: No Currently Unemployed: No Education: Associate Degree Difficulty w/ Childcare or Family Care: No Living arrangements: with friend(s) Additional living arrangements comments: LIVES WITH [facility] Occupation/Education: retired Additional occupation/education comments: [employer] Gender identity (if verbalized by the patient): Female Spiritual care concerns: No Comments At time of signature, agree with nursing past medical, surgical, social and family history. There is no relevant family history pertinent to the presenting complaint. Exam Narrative: GENERAL: This is a well-nourished, well-developed patient, in no apparent distress. HEAD: normocephalic, atraumatic. EYES: PERRL. Sclera clear/white. Vision is grossly intact. EARS: External ears normal NOSE: External nose normal NECK: Neck supple, non-tender without lymphadenopathy, masses or thyromegaly. CARDIOVASCULAR: Regular rate and rhythm without murmurs, gallops, or rubs. RESPIRATORY: Clear to auscultation. Breath sounds equal bilaterally. No wheezes, rales, or rhonchi. SKIN: warm, Dry, with no suspicious lesions or rash, good texture and turgor. skin tear to right forearm 5 x 1 cm NEURO: awake, alert, and oriented to person, place and time. There were no obvious focal neurologic abnormalities. EXTREMITIES: No joint tenderness, effusion, or edema noted. Course Course Level of Care: Express Care Visit Vital Signs Vital signs: reviewed Procedures Laceration Laceration 1: Date: 01/09/25 Time: 19:05 Site: upper extremity Side (If applicable): right Size (cm): 5 Description: flap ====== Skin Level ====== Skin layer closed with: dermabond and steri strips ====== Subcutaneous Layer ====== ====== Muscle Layer ====== ====== Tendon Layer ====== MDM - Wound/Laceration MDM Narrative Medical decision making narrative: skin tear to R forearm repaired with skin adhesive and steri strips. pt tolerated well. She was offered a tetanus today but did not feel was necessary. Differential Diagnosis Differential diagnosis: Likely laceration, abrasion and avulsion of skin Discharge Plan Discharge Clinical Impression: ISTAP type 1 skin tear of right forearm Patient Disposition: Home Condition: Stable Instructions: Skin Tear (ED) Additional Instructions: Keep skin adhesive and steri strips clean and dry. If they become wet, pat dry with towel. Do not pull or pick at steri strips. Let them fall off on their own. If you have signs of infection such as redness, warmth, swelling or drainage see your doctor. Patient Language: Setswana Prescriptions: No Action turmeric 400 mg Capsule 400 mg PO DAILY Prolia 60 mg/mL syringe 60 mg subcut [id number] Rx Instructions: LAST 05/21 latanoprost 0.005 % drops 1 drp HS Rx Instructions: EACH EYE spironolactone 100 mg tablet 100 mg BID Patient Comments: TAKES FOR CHIN HAIR biotin 10,000 mcg Capsule 10,000 mcg PO DAILY Patient Comments: . magnesium 200 mg Tablet 200 mg PO DAILY cholecalciferol (vitamin D3) 250 mcg (10,000 unit) Tablet 250 mcg PO DAILY cyanocobalamin (vitamin B-12) 1 cap DAILY Follow-up/Referrals: Mickey Stark DO [Primary Care Provider] - Time of Disposition: 19:09
== END 2025-01-09 19:11 | disposition home or self-care (01) ==
PROVIDERS: Emergency Provider Nurse Practitioner Family; PCP Internal Medicine
DX: S51.811A Laceration without foreign body of right forearm, initial encounter (principal); W45.8XXA Other foreign body or object entering through skin, initial encounter; Z87.891 Personal history of nicotine dependence; E78.00 Pure hypercholesterolemia, unspecified; M81.0 Age-related osteoporosis without current pathological fracture; E55.9 Vitamin D deficiency, unspecified
CPT/HCPCS: 12002; 99212; G0463

== ENCOUNTER 2025-05-25 12:01 | Outpatient (CLI) | payer MEDICARE, SELFPAY ==
--- NOTE | ~2025-05-25 | MM_ITS ---
EXAMINATION: MM screening [facility] BI w nola HISTORY: Screening TECHNIQUE: Craniocaudal and mediolateral oblique 3-D tomosynthesis images were obtained and synthetic 2-D images were generated. CAD analysis was submitted and interpreted. COMPARISON: Comparison to multiple prior studies sequentially, with oldest reviewed study dated 10/22/2018. BREAST PARENCHYMAL COMPOSITION: Not dense: There are scattered areas of fibroglandular density. FINDINGS: There is no evidence of suspicious mass, calcification, or architectural distortion to suggest malignancy in either breast. There has been no suspicious interval change. IMPRESSION: 1. No mammographic evidence of malignancy. 2. Recommend routine screening mammography in one year. BI-RADS Category 1: Negative Reviewed, dictated and finalized at location B.
--- OUTSIDE RECORDS SUMMARY | 2025-05-25 13:30 | XMS_ITS | Clinical Summary ---
Author Organization [facility] Address [address] [place] [address] Care Team Providers Care Field Specialist Name Role Phone Soto Dwyer MD Primary Care Provider [phone] Allergies No known active allergies Medications No known medications Social History Tobacco Use Types Packs/Day Years Used Date Smoking Tobacco: Never Smokeless Tobacco: Never Tobacco Cessation:Counseling Given: Not Answered Alcohol Use Standard Drinks/Week Comments Never 0 (1 standard drink = 0.6 oz pur e alcohol) Comments No Sex and Gender Information Value Date Recorded Sex Assigned at Female 01/10/2025 8:19 AM CDT 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 Gender Identity Not on file Sexual Orientation Not on file Last Filed Vital Signs Vital Sign Reading Time Taken Comments Blood Pressure 121/70 01/10/2025 8:22 AM CDT Pulse 75 01/10/2025 8:22 AM CDT Temperature 37 C (98.6 F) 01/10/2025 8:22 AM CDT Respiratory Rate 18 01/10/2025 8:22 AM CDT Oxygen Saturation 99% 01/10/2025 8:22 AM CDT Inhaled Oxygen Concentration - - Weight 68.6 kg (151 lb 3.8 oz) 01/10/2025 8:22 A M CDT Height 172.7 cm (5' 8) 01/10/2025 8:22 AM CDT Body Mass Index 23 01/10/2025 8:22 AM CDT Plan of Treatment Health Maintenance Due Date Last Done Comments Colorectal Cancer Screening Colonoscopy (10 Years) 1956 Hepatitis C 1974 DTaP, Tdap and Td Vaccines ( 1 - Tdap) 1975 Mammogram Screening 1996 Pneumococcal Vaccine: 50+ Ye ars (1 of 1 - PCV) 2006 Zoster Vaccines (1 of 2) 2006 Annual Medicare Wellness Visit 2021 Dexa Scan (General) 2021 COVID-19 Vaccine (1 - 2024-2 6 season) 2025 Influenza Adult (#1) 2025 RSV Immunization or 60+ Years (1 - 1-dose 75+ series) 2031 Hepatitis A Vaccines Aged Out No long er eligible based on patient's age to complete this topic Meningococcal B Vaccine Aged Out No l onger eligible based on patient's age to complete this topic Meningococcal Vaccine Aged Out No nataliia johnathon eligible based on patient's age to complete this topic RSV Immunizations Under 20 Months Aged Out No longer eligible based on patient's age to complete this topic Insurance UHC MEDICARE Care Teams Field Specialist Relationship Specialty Start Date End Date Soto Dwyer MD [address] [place] [address] PCP - General INTERNAL MEDICINE 08/07/22
--- OUTSIDE RECORDS SUMMARY | 2025-05-25 13:30 | XMS_ITS | Clinical Summary ---
Author Organization [facility] Address [address] [place] [address] Care Team Providers Care Brokerage Clerk Name Role Phone Soto Dwyer Primary Care Provider [phone] Source Comments [facility],non-owned Affiliates and Associated Physician Practices is amultiple site organization consisting of ambulatory clinics and hospital sitesin [place], [place], [place] and [place]. This disclosure is being madepursuant to the Care Everywhere program and may not contain all information available regarding this patient. Last updated 18.[facility] Allergies No known active allergies Medications * Be aware that medications may not be up to date on this document. Alwaysverify current medications with the patient. 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
== END 2025-05-25 12:02 | disposition home or self-care (01) ==
LOC: CHSIMG 12:02
PROVIDERS: PCP Internal Medicine; Visit Provider Nurse Practitioner
DX: Z12.31 Encounter for screening mammogram for malignant neoplasm of breast (principal)
CPT/HCPCS: 77063; 77067

== ENCOUNTER 2025-06-08 00:24 | Day surgery (SDC) | payer MEDICARE, SELFPAY ==
[2025-05-26 11:17] VITALS: BMI 22.0
--- OUTSIDE RECORDS SUMMARY | 2025-06-08 00:26 | XMS_ITS | Continuity of Care Document ---
Author Name [facility] Organization [facility] Care Team Providers Care Supplier Engineer Name Role Phone [facility] Unavailable Unavailable Encounters Combined list of: 1) Encounters from Department of Veterans Affairs facilities going backup to the last 18 months, not all VA inpatient encounters are included; 2) Encounters from the Department of [facility] facilities going backup to 280 months. Location Location Details Encounter Type Encounter Number Reason For Visit Attending Provider ADM Date DC Date Status Disposition Source [facility] Outpatient Encounter [id number] 7 07/16 [facility] Social History Combined list of available smoking, tobacco, and other social history from Department of Defense and Veterans Affairs facilities. Social History Type Response Date Comment Sourc e This section is an empty social history section. [facility]
--- OUTSIDE RECORDS SUMMARY | 2025-06-08 00:27 | XMS_ITS | Data Portability ---
Author Organization [facility] [employer], Main Office Address [address] [place] [address] Assessment Encounter Date Assessment Date Assessment LastModified [...] [place] Rodriguez, [address], [place], [address], 11:45:13 Medication Orders None record ed. Patient TargetsNo targets recorded. Patient InstructionsNo instructions recorded. Reason for Referral None Reported. Results Created Date Observation Date Name Description Value Unit Range Abnormal Flag Note LastModifiedBy Organization Detail LastModifiedTime 03/07/20 21 XR, knee No observ ation record ed. [id number] [id number] [place] [address], [place], [address], 09/27/2022 18:53:23 08/10/19 23 XR, hand No observ ation record ed. [id number] [facility] [place] [address], [place], [address], 09/27/2022 18:53:23 09/07/19 24 XR, elbow , 3 or more view No observ ation record ed. [email or web address] [facility] [place] [address], [place], [address], 09/07/2023 09:59:24 Result Notes None recorded. Problems Name Problem SNOMED Code Status Onset Date Resolution Date Notes Provider Name and Address Organization Details Recorded Time History of angioplast y 698792950 Active 2016 Not Available [facility] 3 18:52:26 Pain of right elbow joint 3703239625981 9109 Active 2023 JEFF Segura, [place] [facility] 4 09:00:14 Problem Notes None recorded. Procedures Surgical History Date Name Laterality Status Provider Name and Address Organization Details Recorded Time 07/30/19 angioplasty of renal artery completed Not Available [facility] 09/27/2022 18:51:57 repair of meniscus completed Not Available [facility] 09/27/2022 18:51:57 Imaging Results None recorded. Procedure [...] injection administe red by the provider active [facility]: 0003- 0494- 20 Not Available Not Available [...] Updated DateTime 08/10/2022 22.8 kg/m2 172.72 cm 37289.86 g Not Available [facility] 09/27/2022 18:52:11 Date Recorded Body height Body mass index (BMI) Body weight Pain severity - 0-10 verbal numeric rating [Score] - Reported Provider Name and Address Organization Details Last Updated DateTime 09/07/2023 172.72 cm 24 kg/m2 76915.59 g 8 Tete Lobo A [place] [facility] 09/07/2023 08:59:29 Date Recorded Body mass index (BMI) Body height Body weight Provider Name and Address Organization Details Last Updated DateTime 03/07/2021 24.7 kg/m2 170.18 cm 61128.59 g Not Available [facility] 09/27/2022 18:52:11 Social History Question Answer Notes LastModified by Telepartner Details LastModified Time Tobacco Smoking Status Never Smoker Not Available [facility] 09/27/2022 18:51:53 What Was The Date Of Your Most Recent Tobacco Screening? 09/07/2023 [email or web address] Information not available 09/07/2023 Sex: Unknown Functional Status Question Answer Note LastModified by Telepartner Details LastModified Time What is your level of alcohol consumption? Occasional [id number] Information not available 09/27/2022 Mental Status None recorded. Family History Relationship Description Onset Age of this Age Resolved Age Notes LastModified by Organization Details LastModified Time Brother Family history of stroke [id number] Not available 09/27/2022 18:51:58 Mother Hypertensive disorder [id number] Not available 09/27/2022 18:51:58 Maternal Grandmother Diabetes mellitus [id number] Not available 09/27/2022 18:51:58 Medical History Condition Response OSTEOPOROSIS Y Gynecological HistoryNo gynecological history recorded. Obstetrics History GPAL:G 0 P 0 0 0 0 Past Encounters Encounter ID Performer Location Encounter Start Date Encounter Closed Date Diagnosis/Indication Diagnosis SNOMED-CT Code Diagnosis ICD10 Code Diagnosis IMO Codes Diagnosis Note [id number] Jovan Velasquez MD [facility] [place] [address] [place] [address] 03/07/2021 00:00:00 03/07/2021 17:45:42 [id number] Nazario Main MD [facility] [place] [address] [place] [address] 08/10/2022 00:00:00 08/10/2022 10:00:21 [id number] Olayinka Sherwood MD [facility] [place] [address] [place] [address] 09/07/2023 08:54:22 09/07/2023 11:45:13 Pain of right elbow joint 3189134551 6075594 M25.521 Health Concerns Section Related Observation LastModified by Organization Detai ls LastModified Time None Recorded Concern Status LastModified by Organization Details LastModified Time None Recorded Advance Directives Directive None Recorded Payers Insurance Date Sequence Insurance Name Policy Number Policy Elias Covered Member ID Elias Member ID Guarantor Name 09/17/2023 1 [employer] [id number] Carissa Tobias [id number] Brittani Tobias 08/27/2023 1 [employer] (PP[place]) [id number] S Brittani Tobias [id number] Brittani Tobias OBGyn Episode No OBEpisode recorded.
--- OUTSIDE RECORDS SUMMARY | 2025-06-08 00:27 | XMS_ITS | Clinical Summary ---
Author Organization [facility] Address [address] [place] [address] Care Team Providers Care Box Sealing Machine Feeder Name Role Phone Soto Dwyer Primary Care Provider [phone] Source Comments [facility],non-owned Affiliates and Associated Physician Practices is amultiple site organization consisting of ambulatory clinics and hospital sitesin [place], [place], [place] and [place]. This disclosure is being madepursuant to the Care Everywhere program and may not contain all information available regarding this patient. Last updated 18.[facility] Allergies No known active allergies Medications * Be aware that medications may not be up to date on this document. Alwaysverify current medications with the patient. 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
--- OUTSIDE RECORDS SUMMARY | 2025-06-08 00:27 | XMS_ITS | Clinical Summary ---
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
[2025-06-08 07:10] VITALS: BP 126/70; PULSE 82; RESP 14; TEMP 36.1; O2SAT 100; BMI 22.4
--- NOTE | 2025-06-08 07:18 | WPDANESEPPF ---
Anes - Initial Pre Proc Eval Procedure: Operation Date: 06/08/25 08:30 Proposed Procedures p Screening Colonoscopy - Pierce Stafford MD Date/Time: 06/08/25 07:18 Surgeon: Pierce Stafford MD Pre Op Diagnosis: Screening Patient Data Age: 70 Gender: F Height: 1.73 m Weight: 65.8 kg Allergies Allergy/AdvReac Type Severity Reaction Status Date / Time No Known Allergies Allergy Verified 06/08/25 07:17 Home Medications ?Medication ?Instructions ?Recorded ?Confirmed ?Type denosumab 60 mg/mL subcutaneous 60 mg subcut [id number] 01/22/23 06/08/25 History syringe (Prolia) biotin 10,000 mcg capsule 10,000 mcg PO DAILY 08/28/23 06/08/25 History cholecalciferol (vitamin D3) 250 250 mcg PO DAILY 08/28/23 06/08/25 History mcg (10,000 unit) tablet latanoprost 0.005 % eye drops 1 drp EACH EYE HS 08/28/23 06/08/25 History magnesium 200 mg tablet 200 mg PO DAILY 08/28/23 06/08/25 History spironolactone 100 mg tablet 100 mg PO BID 08/28/23 06/08/25 History turmeric 400 mg capsule 400 mg PO DAILY 11/23/23 06/08/25 History calcium 187.5 mg capsule 187.5 mg PO DAILY 05/26/25 06/08/25 History ferrous sulfate 325 mg (65 mg 325 mg PO DAILY 05/26/25 06/08/25 History iron) tablet (Feosol) Patient hx anesthesia problems: none Family hx anesthesia problems: none Results Review: All pre-operative results and documents have been reviewed as part of the pre-operative evaluation. [facility] Past Medical History Medical History (Updated 01/10/25 @ 00:01 by Shaheen Gandhi) Encounter for screening colonoscopy Vitamin D deficiency, unspecified Routine medical exam Rib pain on right side Pure hypercholesterolemia, unspecified Pure hypercholesterolemia Other chest pain Hx of renal artery stenosis Encounter for cosmetic surgery Osteoporosis Surgical History Surgical History History of angioplasty renal for HTN, 2000, no issues since Family History Family History Mother Hypertension Sibling Hypertension Family history of gastrointestinal disorder Father Patient's father is Social History Social History Smoking packs per day: 0.5 Smoking cigarettes per day: 10.0 Years smoked: 25 Smoking pack-years: 12.50 Smoking status: Former smoker Tobacco type: cigarettes Second hand tobacco smoke exposure: No Smoking end date: 07/30/09 Alcohol intake: current Alcohol use details: 2/MONTH Substance use: never Substance use type: does not use Do You Feel Safe in your Home?: Yes Lack of Transportation: No Lack of Food: Never True Current Housing: I Have Housing Concerned About Future Housing: No Difficulty Paying Gas/Electric Bills: No Difficulty Paying for Meds: No Currently Unemployed: No Education: Associate Degree Difficulty w/ Childcare or Family Care: No Living arrangements: with friend(s) Additional living arrangements comments: LIVES WITH [facility] Occupation/Education: retired Additional occupation/education comments: [employer] Gender identity (if verbalized by the patient): Female Spiritual care concerns: No Anes - Eval Final PreProcedure Day of Procedure 06/08/25 07:18 Patient weight: normal Heart: regular rate and rhythm Lungs: clear to auscultation and normal air movement Airway: Mallampati scale class II Neurological: alert and oriented Last oral intake: >/= 8 hours ASA classification: III Emergent: no Anesthetic plan: proceed Anesthesia type and monitoring: general GIVS and standard monitoring Results Review: All pre-operative results and documents have been reviewed as part of the pre-operative evaluation. Informed Consent: The patient's anesthetic plan and its attendant risks and benefits were discussed with the patient/family/POA. Questions were solicited and answers provided to the satisfaction of the patient/family/POA.
[2025-06-08] MEDS: LACTATED RINGERS 1,000 ML 150 ML IV CONT (07:28)
--- NOTE | 2025-06-08 08:14 | PM.IMHP ---
H&P: HPI History of Present Illness Date/Time: 06/08/25 08:14 Chief Complaint: Screening colonoscopy Narrative: This is the patient's 2nd screening colonoscopy. There are no GI symptoms and there is no family history of colorectal cancer. Review of Systems Review of Systems: All systems reviewed & are unremarkable except as noted in HPI and below PMFSH Past Medical History Medical History (Updated 01/10/25 @ 00:01 by Shaheen Gandhi) Encounter for screening colonoscopy Vitamin D deficiency, unspecified Routine medical exam Rib pain on right side Pure hypercholesterolemia, unspecified Pure hypercholesterolemia Other chest pain Hx of renal artery stenosis Encounter for cosmetic surgery Osteoporosis Surgical History Surgical History History of angioplasty renal for HTN, 2000, no issues since Family History Family History Mother Hypertension Sibling Hypertension Family history of gastrointestinal disorder Father Patient's father is Social History Social History Smoking packs per day: 0.5 Smoking cigarettes per day: 10.0 Years smoked: 25 Smoking pack-years: 12.50 Smoking status: Former smoker Tobacco type: cigarettes Second hand tobacco smoke exposure: No Smoking end date: 07/30/09 Alcohol intake: current Alcohol use details: 2/MONTH Substance use: never Substance use type: does not use Do You Feel Safe in your Home?: Yes Lack of Transportation: No Lack of Food: Never True Current Housing: I Have Housing Concerned About Future Housing: No Difficulty Paying Gas/Electric Bills: No Difficulty Paying for Meds: No Currently Unemployed: No Education: Associate Degree Difficulty w/ Childcare or Family Care: No Living arrangements: with friend(s) Additional living arrangements comments: [facility] Occupation/Education: retired Additional occupation/education comments: [employer] Gender identity (if verbalized by the patient): Female Spiritual care concerns: No Meds Home Medications and Allergies Home Medications ?Medication ?Instructions ?Recorded ?Confirmed ?Type denosumab 60 mg/mL subcutaneous 60 mg subcut [id number] 01/22/23 06/08/25 History syringe (Prolia) biotin 10,000 mcg capsule 10,000 mcg PO DAILY 08/28/23 06/08/25 History cholecalciferol (vitamin D3) 250 250 mcg PO DAILY 08/28/23 06/08/25 History mcg (10,000 unit) tablet latanoprost 0.005 % eye drops 1 drp EACH EYE HS 08/28/23 06/08/25 History magnesium 200 mg tablet 200 mg PO DAILY 08/28/23 06/08/25 History spironolactone 100 mg tablet 100 mg PO BID 08/28/23 06/08/25 History turmeric 400 mg capsule 400 mg PO DAILY 11/23/23 06/08/25 History calcium 187.5 mg capsule 187.5 mg PO DAILY 05/26/25 06/08/25 History ferrous sulfate 325 mg (65 mg 325 mg PO DAILY 05/26/25 06/08/25 History iron) tablet (Feosol) Allergies Allergy/AdvReac Type Severity Reaction Status Date / Time No Known Allergies Allergy Verified 06/08/25 07:17 Vital Signs Vital Signs - 24 hr 06/08/25 07:10 Temperature 97.0 F L Pulse Rate 82 Respiratory Rate 14 Blood Pressure 126/70 Pulse Oximetry 100 Oxygen Delivery Room Air Exam Const: General: cooperative and healthy appearing Resp: Effort & Inspection: normal respiratory effort and able to speak in complete sentences Auscultation: clear to auscultation bilaterally Cardio: Rate: regular rate Rhythm: regular rhythm GI: Inspection: normal to inspection GI Palp: No No hepatosplenomegaly present Auscultation: normal bowel sounds Rectal Exam: deferred Skin: General skin exam: normal color Psych: Appearance: grossly normal Mental Status: mental status grossly normal Assessment and Plan Assessment and plan (1) Encounter for screening colonoscopy: Code(s): Z12.11 - Encounter for screening for malignant neoplasm of colon Status: Acute Assessment and Plan: The patient is deemed a good candidate for the procedure. Consent signed. Will proceed.
[2025-06-08 08:37] VITALS: BP 95/43; PULSE 71; RESP 13; O2SAT 99
[2025-06-08 08:47] VITALS: BP 118/61; PULSE 75; RESP 20; O2SAT 100
[2025-06-08 08:57] VITALS: BP 106/55; PULSE 65; RESP 13; O2SAT 100
== END 2025-06-08 09:10 | disposition home or self-care (01) ==
PROVIDERS: PCP Internal Medicine; Referring Provider Internal Medicine; Visit Provider Internal Medicine Gastroenterology
PROC: 0DJD8ZZ Inspection of Lower Intestinal Tract, Via Natural or Artificial Opening Endoscopic (ICD-10-PCS; CPT 45378; principal; 2025-06-08 08:30)
DX: Z12.11 Encounter for screening for malignant neoplasm of colon (principal); K57.30 Diverticulosis of large intestine without perforation or abscess without bleeding; E55.9 Vitamin D deficiency, unspecified; E78.00 Pure hypercholesterolemia, unspecified; M81.0 Age-related osteoporosis without current pathological fracture; Z98.890 Other specified postprocedural states; Z87.891 Personal history of nicotine dependence; Z86.79 Personal history of other diseases of the circulatory system
CPT/HCPCS: G0121; J2003; J2704; J7120

== ENCOUNTER 2025-06-09 12:47 | Outpatient (CLI) | payer MEDICARE, SELFPAY ==
--- NOTE | ~2025-06-09 | DEXA_ITS ---
Bone Density Report Name: ALLISON RODGERS Age: 70 Sex: Female Ethnicity: White Date of : 1955 Indication: osteopenia; monitoring treatment; prior fracture; Referring Provider: JG, SEAMUS Study: Bone densitometry was performed. Exam Date: June 09, 2025 Accession number: [id number] Bone Density: Region BMD T-score Z-score Classification AP Spine(L1-L4) 0.911 -1.2 0.8 Osteopenia Femoral Neck (Left) 0.579 -2.4 -0.7 Osteopenia Total Hip (Left) 0.754 -1.5 -0.1 Osteopenia Femoral Neck (Right) 0.580 -2.4 -0.7 Osteopenia Total Hip (Right) 0.751 -1.6 -0.1 Osteopenia Total Hip Mean 0.752 -1.6 -0.1 Osteopenia World Health Organization criteria for BMD impression classify patients as: Normal (T-score at or above -1.0), Osteopenia (T-score between -1.0 and -2.5), or Osteoporosis (T-score at or below -2.5). 10-year Fracture Risk: FRAX not reported because: Treated for osteoporosis Previous Exams: -- Region Exam Age BMD T-score BMD Change BMD Change Date g/cm2 vs Baseline vs Previous -- AP Spine (L1-L4) 06/09/2025 70 0.911 -1.2 5.4%* 0.2% 05/21/2023 68 0.910 -1.2 5.2%* 11.4%* 03/07/2021 65 0.817 -2.1 -5.6%* -1.3% 10/22/2018 63 0.828 -2.0 -4.3%* -0.4% 09/27/2016 61 0.831 -2.0 -4.0%* -3.9%* 08/06/2014 59 0.864 -1.7 -0.1% 3.2%* 07/17/2012 57 0.837 -1.9 -3.2%* -3.2%* 07/15/2010 55 0.865 -1.7 Total Hip(Left) 06/09/2025 70 0.754 -1.5 -5.0%* -3.8%* 05/21/2023 68 0.783 -1.3 -1.3% 4.7%* 03/07/2021 65 0.748 -1.6 -5.7%* -1.2% 10/22/2018 63 0.757 -1.5 -4.6%* -0.6% 09/27/2016 61 0.761 -1.5 -4.0%* 2.1% 08/06/2014 59 0.746 -1.6 -6.0%* -3.0% 07/17/2012 57 0.769 -1.4 -3.0% -3.0% 07/15/2010 55 0.793 -1.2 Total Hip(Right) 06/09/2025 70 0.751 -1.6 -3.4% -1.6% 05/21/2023 68 0.763 -1.5 -1.8% 3.1% 03/07/2021 65 0.740 -1.7 -4.7%* -0.5% 10/22/2018 63 0.744 -1.6 -4.3%* 0.2% 09/27/2016 61 0.743 -1.6 -4.4%* 0.4% 08/06/2014 59 0.740 -1.7 -4.8%* -2.7% 07/17/2012 57 0.760 -1.5 -2.2% -2.2% 07/15/2010 55 0.777 -1.4 -- *Denotes significance at 95% confidence level, LSC for AP Spine = 0.022 g/cm2, LSC for Total Hip = 0.027 g/cm2 Clinical Information Provided by Patient: Has had a low trauma fracture Is being treated for osteoporosis Has used the following medications: Fosamax (i.e. alendronate), Prolia (i.e. denosumab), Vitamin D Patient maximum height was 68 Menopause Age: 55 No regular weight bearing exercise Drinks caffeinated beverages Onset of menses at age 14 Number of children 2 Impression: The patient has low bone mass, based on the Left Femoral Neck T-score. The patient has risk factors, including: previous fracture. The BMD for the Total Hip(Left) decreased, changing by -3.8% since the last DXA exam. Discussion: SIGNIFICANT BONE LOSS OBSERVED. Adherence to therapy (including calcium and vitamin D intake) should be assessed. If compliance is not a factor, review management and exclusion of secondary causes of bone loss. It is important to ask patients whether they are taking their medications and to encourage continued and appropriate compliance with their osteoporosis therapies to reduce fracture risk. It is also important to review their risk factors and encourage appropriate calcium and vitamin D intakes, exercise, fall prevention and other lifestyle measures. Follow-Up: Consider a repeat BMD and Vertebral Fracture Assessment (VFA) exam in 2 years or sooner if medically necessary, to reassess this patient's status. Reported by: VALDEZ on 06/09/2025 1:09:00 PM. Reviewed, dictated and finalized at location A.
== END 2025-06-09 12:48 | disposition home or self-care (01) ==
LOC: MICIMG 12:48
PROVIDERS: PCP Internal Medicine; Visit Provider Nurse Practitioner
DX: Z78.0 Asymptomatic menopausal state (principal); M81.0 Age-related osteoporosis without current pathological fracture; M85.88 Other specified disorders of bone density and structure, other site; M85.852 Other specified disorders of bone density and structure, left thigh; M85.851 Other specified disorders of bone density and structure, right thigh
CPT/HCPCS: 77080